=== PATIENT | female | born 1995 | race African-American/Black ===

== ENCOUNTER 2017-04-06 16:43 | Emergency (ER) | payer SELFPAY ==
[2017-04-06 16:50] VITALS: BP 115/57; BMI 39.4
[2017-04-06] MEDS ORDERED: BACTRIM DS TAB PO ONE (19:11)
[2017-04-06] MEDS ORDERED: TORADOL TAB PO ONE (19:11)
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
== END 2017-04-06 19:20 | disposition left against medical advice (07) ==
LOC: ER 17:10
DX: L02.91 Cutaneous abscess, unspecified (principal); L03.116 Cellulitis of left lower limb
CPT/HCPCS: 99281